=== PATIENT | male | born 1975 | race Caucasian/White ===

== ENCOUNTER 2023-12-17 18:21 | Outpatient (REF) | payer BC, SELFPAY ==
[2023-12-17 19:58] LABS: Calculated LDL 103 mg/dL (<100); Cholesterol 221 mg/dL (<200); HDL Cholesterol 101 mg/dL (40-60); Triglyceride 89 mg/dL (<150)
[2023-12-17 20:15] LABS: Hemoglobin A1C 5.1 % (<5.7)
[2023-12-18 22:33] LABS: PSA, Screening 0.3 ng/mL (<=3.5)
== END 2023-12-17 18:22 | disposition home or self-care (01) ==
LOC: NCHCN 18:21
PROVIDERS: Visit Provider Physician Assistant
DX: Z13.1 Encounter for screening for diabetes mellitus (principal); Z00.00 Encounter for general adult medical examination without abnormal findings; Z13.220 Encounter for screening for lipoid disorders
CPT/HCPCS: 80061; 84153; 83036